=== PATIENT | male | born 1980 | race Caucasian/White ===

== ENCOUNTER 2022-02-13 19:25 | Emergency (ER) | payer BC, SELFPAY ==
[2022-02-13 19:27] VITALS: BP 95/68; PULSE 79; RESP 16; TEMP 36.4; O2SAT 99; BMI 25.7
[2022-02-13 21:06] LABS: Absolute Lymphocyte Count 1.33 X10^3/uL (0.83-4.51); Absolute Neutrophil Count 2.5 X10^3/uL (2.0-7.7); Basophil# 0.02 X10^3/uL; Basophil% 0.5 % (0-1); Eosinophil# 0.11 X10^3/uL; Eosinophils% 2.5 % (0-5); Hematocrit 40.7 % (40-54); Hemoglobin 13.7 g/dL (13.0-16.5); Lymphocyte # 1.33 X10^3/ul (0.83-4.51); Lymphocyte % 30.8 % (19-41); Mean Corp Hgb Conc 33.7 g/dL (32-36); Mean Corpuscular Hgb 29.9 pg (27.0-32.0); Mean Corpuscular Volume 88.9 fL (80-94); Mean Platelet Vol. 9.4 fl (6.2-12.0); Monocyte# 0.37 X10^3/uL; Monocyte% 8.6 % (0-10); NRBC Flagged by Analyzer 0 % (0-5); Neutrophil # 2.47 X10^3/uL (2.7-7.7); Neutrophil % 57.1 % (47-70); Platelet Count 200 K/mm3 (150-450); RBC Distribution Width CV 12.8 % (11.6-14.6); RBC Distribution Width SD 41.7 fl (35.1-43.9); Red Blood Count 4.58 M/mm3 (4.6-6.2); White Blood Count 4.3 K/mm3 (4.4-11.0)
--- NOTE | 2022-02-13 21:11 | CT_ITS ---
EXAM: CT ABDOMEN AND PELVIS WITHOUT INTRAVENOUS CONTRAST CLINICAL INDICATION: hematuria TECHNIQUE: Helically acquired images were obtained of the abdomen and pelvis without intravenous contrast. CTDIvol = ( 8.70 ) mGy, DLP = ( 487.13 ) mGycm This CT exam was performed using one or more of the following dose reduction techniques: automated exposure control, adjustment of the mA and/or kV according to patient size, and/or use of iterative reconstruction technique. This report was created using [employer] report generation technology. COMPARISON: None. FINDINGS: LOWER THORAX: No consolidation. No pleural effusion or pneumothorax. ABDOMEN: LIVER: Several focal small metallic densities involve the posterior segment of the right hepatic lobe. GALLBLADDER AND BILE DUCTS: Gallbladder sludge. No wall thickening or surrounding fluid in place. No calcifications involving the gallbladder. No definite acute cholecystitis. No intra- or extrahepatic biliary ductal dilation. PANCREAS: Unremarkable. No focal cystic mass. SPLEEN: Unremarkable. Normal size without focal cystic or solid mass. ADRENALS: Unremarkable. No nodules. KIDNEYS AND URETERS: No radiopaque urolithiasis. Normal renal size and position. No hydronephrosis. STOMACH AND BOWEL: Unremarkable. No stomach or bowel distention. No focal inflammatory change. PELVIS: APPENDIX: No evidence of acute appendicitis. BLADDER: Unremarkable. REPRODUCTIVE: Unremarkable as visualized. No mass. ABDOMEN and PELVIS: INTRAPERITONEAL SPACE: Unremarkable. No ascites or other fluid collection. No free air. BONES/JOINTS: Unremarkable. No suspicious lytic or blastic abnormality. SOFT TISSUES: Gynecomastia bilaterally. Mild subsegmental atelectasis at the posterior lower lobes. No discrete abdominal or pelvic wall hernia. VASCULATURE: Unremarkable. Abdominal aorta is non-dilated. LYMPH NODES: Unremarkable. No enlarged lymph nodes. CT/Abdomen/Pelvis without Cont IMPRESSION: No radiopaque urolithiasis or any other acute disease. Electronically Signed: Jose A Trevino MD at 21:39 EDT ,
[2022-02-13 21:29] LABS: AST(SGOT) 616 U/L (15-37); Alanine Aminotransfer ALT/SGPT 1019 U/L (16-61); Alkaline Phosphatase 142 U/L (45-117); Anion Gap 7 (5-15); BUN 14 mg/dL (7-18); BUN/Creat Ratio 12.2 RATIO (10-20); Bilirubin, Direct 3.57 mg/dL (0.00-0.30); CPK Total, Creatine Kinase 804 U/L (39-308); Calcium,Total 8.9 mg/dL (8.5-10.1); Chloride 104 mmol/L (98-107); Creatinine, Serum 1.15 mg/dL (0.70-1.30); EST Glomerular Filtration Rate 74 mL/min (>60); Est Glom Filt Rate - Afr Amer 89 mL/min (>60); Globulin 3.3 g/dL (2.2-4.2); Glucose 96 mg/dL (74-106); Lipase 386 U/L (73-393); Potassium 3.7 mmol/L (3.5-5.1); Protein, Total 7.3 g/dL (6.4-8.2); Sodium Level 138 mmol/L (136-145)
--- NOTE | 2022-02-13 21:37 | US_ITS ---
EXAM: US ABDOMEN LIMITED, RIGHT UPPER QUADRANT CLINICAL INDICATION: abnormal LFTs TECHNIQUE: Real-time ultrasound of the right upper quadrant with image documentation. This report was created using [employer] report generation technology. COMPARISON: None. FINDINGS: LIVER: Echogenic focus involving the liver is potentially postsurgical. Hepatomegaly measuring 18.4 cm. No intrahepatic biliary ductal dilation. GALLBLADDER: Gallbladder is distended with stones and sludge. No gallbladder wall thickening. Sonographic Jimenez''s sign is negative. No pericholecystic fluid. COMMON BILE DUCT: Common bile duct is dilated to 9 mm. No choledocholithiasis on limited assessment. Intrahepatic ducts are mildly dilated. Correlate with LFTs and consider MRCP as clinically indicated. PANCREAS: Unremarkable as visualized. No focal abnormality is demonstrated in the pancreas. No pancreatic ductal dilatation. RIGHT KIDNEY: Right kidney is unremarkable. There is no hydronephrosis. No shadowing calculus. No focal lesion or perinephric collection is demonstrated. OTHER VASCULATURE: Main portal vein is patent with normal direction of blood flow. US/Abdomen Limited IMPRESSION: 1. Cholelithiasis and gallbladder sludge without definite acute cholecystitis. 2. Common bile duct is dilated to 9 without definite choledocholithiasis on limited assessment. Intrahepatic ducts are mildly dilated. Correlate with LFTs and consider MRCP as clinically indicated. Electronically Signed: Jose A Trevino MD at 22:59 EDT ,
[2022-02-13] MEDS: Ondansetron 4 MG/2 ML Vial IV (21:46)
[2022-02-13] MEDS: 0.9% Normal Saline 1,000 ML 1000 ML IV (21:47)
[2022-02-13 21:48] LABS: Mucous, Urine 0 SEEN /hpf (<or=2+); Squamous Epithelial Cells - UA 0 SEEN /hpf (0-5)
[2022-02-13 21:52] LABS: Color, Urine Amber (Yellow); Glucose, Dipstick Normal (Normal); Ketone-Dipstick 5 mg/dl (Negative); Leukocyte Esterase-Dipstick 25 /ul (Negative); Nitrite-Dipstick Negative (Negative); Occult Blood-Urine 10 /ul (Negative); Protein-Dipstick 15 mg/dl (Negative); Urine Clarity Clear (Clear); Urine Urobilinogen 8 mg/dl (Normal)
[2022-02-13 21:55] LABS: Urine Bilirubin Dipstick 6 mg/dL (Negative)
[2022-02-13 22:17] LABS: Bacteria RARE /hpf (None Seen); Red Blood Cells-Urine 0-5 SEEN /hpf (0-5); White Blood Cells 0-5 SEEN /hpf (0-5)
--- NOTE | 2022-02-13 22:35 | EDS_ITS ---
HPI History of Present Illness Chief Complaint: Complaint Detail of Chief Complaint: Urinating blood, discolored stool, generalized weakness Informant: patient Narrative Narrative: Patient presents with multiple complaints. He states that he has been noticed what appears to be blood in his urine for the past 4 days. He had some pain with urination today. 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 He thinks he may have had a heatstroke 3 weeks ago. He states he was extremely hot at work and confused. He had trouble speaking for a while. They were try to give him water and he would vomit. He states since then he additionally has not felt well. He does report that he has been nauseated and vomiting up stomach acid for the past 4 days. Patient reports trauma a year ago when he fell from a tree at work. He had a liver laceration that required repair. He has not really followed up with anybody since that time. He denies having a kidney laceration at that time but states he did have some hematuria for a while. PFSH PFS Medical History Hx of back injury Home Medications NK 02/13/22 [History Last Taken Unknown] Allergy/AdvReac Type Severity Reaction Status Date / Time No Known Allergies Allergy Verified 02/13/22 19:30 Surgical History Hx of Achilles tendon repair Social History Smoking Status: Never smoker ROS ROS ED Constitutional Constitutional ED: Denies chills or fever(s) Eyes Eyes: Denies change in vision or discharge from eye(s) ENT ENT ED: Denies discharge from eye(s), rhinorrhea or sore throat Cardiovascular Cardiovascular: Denies chest pain or palpitations Respiratory/Chest Respiratory/Chest: Denies cough or dyspnea Gastrointestinal Gastrointestinal: Reports abdominal pain, nausea and vomiting; Denies diarrhea Genitourinary Genitourinary ED: Reports dysuria and hematuria; Denies difficulty urinating Musculoskeletal Musculoskeletal: Reports back pain; Denies extremity pain Integumentary Denies Abrasions or rash Neurologic Neurologic: Denies headache(s) or weakness Psychiatric Psychiatric: Denies anxiety or depression Endocrine Endocrinology: Denies polydipsia or polyuria Allergic/Immunologic Allergic/Immunologic ED: Denies lip swelling or urticaria EXAM Physical Exam Const Vital Signs: 02/13/22 19:27 02/13/22 23:14 02/13/22 23:22 Temperature 97.5 F L Temperature Source Temporal Pulse Rate 79 52 L Respiratory Rate 16 16 14 Blood Pressure 95/68 109/70 Blood Pressure Mean 77 83 Pulse Ox 99 99 Oxygen Delivery Method Room Air Room Air Positive well nourished and well developed General Appearance ED: well developed HEENT Reports normocephalic and head/scalp atraumatic Eyes PERRL and EOMs intact bilaterally Neck supple Chest Wall inspection of chest normal and palpation of chest normal Resp normal respiratory effort and clear to auscultation bilaterally Cardio regular rate and regular rhythm GI GI Narrative: Abdomen is soft with mild diffuse tenderness. No guarding or rebound. Palpation: soft Back/Spine no CVA tenderness Extremity normal to inspection Neuro oriented x3 and no sensory deficits noted Sensorium / Orientation: alert Motor Exam: strength 5/5 throughout Psych mental status grossly normal Skin no rashes or lesions noted MDM MDM MDM Narrative Medical decision making narrative: Lab work obtained along with urinalysis and CT flank. Patient given IV fluids and Protonix. Due to some continued dry heaves he was given Zofran. Lab Data Attestation: I reviewed the patient's lab results. Labs: Laboratory Results - last 24 hr 02/13/22 02/13/22 02/13/22 20:56 20:56 21:35 WBC 4.3 L RBC 4.58 L Hgb 13.7 Hct 40.7 MCV 88.9 MCH 29.9 MCHC 33.7 RDW Std Deviation 41.7 RDW Coeff of Franci 12.8 Plt Count 200 MPV 9.4 Immature Gran % (Auto) 0.500 Neut % (Auto) 57.1 Lymph % (Auto) 30.8 [place] % (Auto) 8.6 Eos % (Auto) 2.5 Baso % (Auto) 0.5 Absolute Neuts (auto) 2.5 Absolute Lymphs (auto) 1.33 Nucleated RBC % 0 Sodium 138 Potassium 3.7 Chloride 104 Carbon Dioxide 27.0 Anion Gap 7 BUN 14 Creatinine 1.15 Estim Creat Clear Calc 96.30 Est GFR (MDRD) Af Amer 89 Est GFR (MDRD) Non-Af 74 BUN/Creatinine Ratio 12.2 Glucose 96 Calcium 8.9 Total Bilirubin 5.30 H Direct Bilirubin 3.57 H AST 616 H ALT 1019 H Alkaline Phosphatase 142 H Total Creatine Kinase 804 H Total Protein 7.3 Albumin 4.0 Globulin 3.3 Lipase 386 Urine Color [place] Urine Clarity Clear Urine pH 5.0 Ur Specific [place] 1.030 Urine Protein 15 H Urine Glucose (UA) Normal Urine Ketones 5 H Urine Occult Blood 10 H Urine Nitrite Negative Urine Bilirubin 6 H Urine Urobilinogen 8 H Ur Leukocyte Esterase 25 H Urine RBC 0-5 SEEN Urine WBC 0-5 SEEN Ur Squamous Epith Cells 0 SEEN Urine Bacteria RARE Urine Mucus 0 SEEN Radiography Diagnostic Testing: Clinical Impression(s) from Imaging Studies Abdomen/Pelvis CT 02/13/22 21:11 IMPRESSION: No radiopaque urolithiasis or any other acute disease. Electronically Signed: Jose A Trevino MD at 21:39 EDT , Abdomen Ultrasound 02/13/22 21:37 IMPRESSION: 1. Cholelithiasis and gallbladder sludge without definite acute cholecystitis. 2. Common bile duct is dilated to 9 without definite choledocholithiasis on limited assessment. Intrahepatic ducts are mildly dilated. Correlate with LFTs and consider MRCP as clinically indicated. Electronically Signed: Jose A Trevino MD at 22:59 EDT , Treatment and Re-Evaluation Narrative: Patient's white count is normal. LFTs are significantly abnormal with an ALT of 1019, AST of 616, direct bilirubin of 3.57, total bilirubin of 5.30. Total CK level is 804. Patient's lipase is normal. Urinalysis reveals bilirubin in the urine but no blood. CT scan of the abdomen and pelvis revealed no acute disease. Right upper quadrant ultrasound is obtained. There is evidence of cholelithiasis and gallbladder sludge without definitive acute cholecystitis. The common bile duct is dilated to 9 without definitive choledocholithiasis. Intrahepatic ducts are mildly dilated and MRCP is recommended. Test results were discussed with patient as well as significant other at bedside. He is unwilling to stay in the hospital for further testing and states he is going to walk out of the emergency room. I warned him that worsening liver disease can be life-threatening. He again voices he will not stay in the hospital. He will be given phone number for GI for follow-up but he was warned that it may be several months until he can get in to be seen. He was encouraged to come back to the emergency room if he changes his mind about treatment, but was warned that if we do not have GI on-call that day he may be transferred for further care. I advised him that knee he needs to take responsibility for his health care and seek treatment for this for this before it gets worse. Acute hepatitis panel will be drawn prior to patient leaving the emergency room. Discharge Plan Triage Chief Complaint: Complaint Other Complaint: General Illness ED Provider: Clau Garcia Dx/Rx/DC Orders Clinical Impression: Transaminitis Instructions: Tests for Liver Disease Prescriptions: No Action NK Primary Care Provider: Care Physician,No Primary Referrals: Aung Pina, DO [STAFF PHYSICIAN] - As soon as possible Care Physician,No Primary [Primary Care Provider] - Activity Restrictions/Additional Instructions: As discussed, I recommend staying in the hospital for further testing to ensure further treatment for your liver disease. At this time you are refusing hospital admission. Please follow-up with GI as soon as possible. You may return to the hospital to seek treatment anytime, but understand that if we do not have GI systems security consultant that particular day you may be transferred to another facility. You can from liver disease and this needs treated as promptly as possible. Disposition Disposition: Home, Self Care
[2022-02-13 23:14] VITALS: RESP 16
[2022-02-13 23:22] VITALS: BP 109/70; PULSE 52; RESP 14; O2SAT 99
[2022-02-16 12:08] LABS: HEPATITIS B SURFACE AG Negative (Negative); Hep C Antibodies 0.2 s/co ratio (0.0-0.9); Hepatitis A IgM Antibody Negative (Negative); Hepatitis B Core AB IgM Negative (Negative)
== END 2022-02-14 00:03 | disposition home or self-care (01) ==
PROVIDERS: Emergency Provider Emergency Medicine; Visit Provider Emergency Medicine
DX: R74.01 Elevation of levels of liver transaminase levels (principal); K83.8 Other specified diseases of biliary tract; R31.9 Hematuria, unspecified; R53.1 Weakness
CPT/HCPCS: 74176; 76705; 80048; 80074; 80076; 81001; 82550; 83690; 85025; 96365; 96375; 99283; J7030; A4216; J2405

== ENCOUNTER 2022-02-14 09:11 | Emergency (ER) | payer BC, SELFPAY ==
[2022-02-14 09:12] VITALS: BP 117/80; PULSE 71; RESP 16; TEMP 36.8; O2SAT 100; BMI 25.7
--- NOTE | 2022-02-14 09:16 | EDS_ITS ---
HPI <DENNYS Breaux - Last Filed: 02/14/22 14:48> History of Present Illness Chief Complaint: Abd Pain Narrative Narrative: Patient has noticed blood in his urine for 5 days and his stools looked light hector and white in color. He has also had burning upper abdominal pain and intermittent nausea and vomiting over the same period. He was seen here yesterday with lab work and a CT. He had significantly elevated LFTs. CT scan was normal. RUQ ultrasound showed gallstones and sludge and dilated common bile duct. They had recommended MRCP but he left AMA because he had things to take care of with his and did not want to take a taxi. He says he has not vomited since he left but did drink a lot of apple juice this morning and is having upper abdominal discomfort. He came back into get things taken care of. Previous surgical history includes repair of a liver laceration a year ago after a fall. No other surgeries, takes no medications. States he drinks 1 to 2 glasses of wine per week. PFSH <DENNYS Breaux - Last Filed: 02/14/22 14:48> [facility] Medical History (Updated 02/14/22 @ 12:43 by DENNYS Breaux) Hx of back injury Liver laceration Home Medications NK 02/13/22 [History Last Taken Unknown] Allergy/AdvReac Type Severity Reaction Status Date / Time No Known Allergies Allergy Verified 02/14/22 09:13 Surgical History Hx of Achilles tendon repair Social History Smoking Status: Never smoker ROS <DENNYS Breaux - Last Filed: 02/14/22 14:48> ROS ED ROS Narrative Constitutional: Negative for fever, chills, malaise. Eyes: Negative for visual change. ENT: Negative for sore throat, ear pain, rhinorrhea. CVS: Negative for palpitations, chest pain, syncope. Respiratory: Negative for shortness of breath, cough, orthopnea. GI: Positive for abdominal pain, nausea, vomiting. Negative for diarrhea, constipation, melena, hematochezia. : Positive for hematuria. Negative for dysuria or frequency. Neuro: Negative for headache, motor/sensory dysfunction. Skin: Negative for rash, abscess, or wound. Musc: Negative for joint pain, swelling, trauma. Heme: Negative for easy bruising, bleeding, lymphadenopathy. EXAM <DENNYS Breaux - Last Filed: 02/14/22 14:48> Physical Exam Narrative Exam Narrative: CONST: Patient sitting in no acute distress. EYES: Normal inspection. ENT: Normal inspection, moist mucous membranes. NECK: Normal inspection. RESP: No respiratory distress, CTAB. CVS: Regular rate and rhythm, no murmur, no gallop. ABD: Soft with mild RUQ and epigastric tenderness, negative Jimenez sign, no guarding or rebound, nondistended, no hepatosplenomegaly. SKIN: Color normal, no rash, warm, dry, intact. EXTREMITIES: Normal appearance, no pedal edema. NEURO: Oriented x4. PSYCH: Normal affect. Const Vital Signs: 02/14/22 09:12 02/14/22 09:55 02/14/22 11:27 Temperature 98.2 F 98.2 F Temperature Source Temporal Temporal Pulse Rate 71 71 58 L Respiratory Rate 16 16 18 Blood Pressure 117/80 117/80 110/77 Blood Pressure Mean 92 92 88 Pulse Ox 100 100 98 Oxygen Delivery Method Room Air Room Air Room Air <Dr. Mikal Calero, - Last Filed: 02/14/22 15:25> Physical Exam Const Vital Signs: 02/14/22 09:12 02/14/22 09:55 02/14/22 11:27 Temperature 98.2 F 98.2 F Temperature Source Temporal Temporal Pulse Rate 71 71 58 L Respiratory Rate 16 16 18 Blood Pressure 117/80 117/80 110/77 Blood Pressure Mean 92 92 88 Pulse Ox 100 100 98 Oxygen Delivery Method Room Air Room Air Room Air MDM <DENNYS Breaux - Last Filed: 02/14/22 14:48> [facility] Narrative Medical decision making narrative: Patient has had 5 days of upper abdominal pain, nausea and vomiting, and dark- colored urine. He was seen here yesterday and had elevated LFTs and bilirubin and right upper quadrant ultrasound findings concerning forcholedocholithiasis. He left AMA and returned today for the same symptoms. He appears well and nontoxic. Vital signs within normal limits. He has mild tenderness to the right upper quadrant but negative Jimenez sign and no guarding or rebound. Repeat labs show normal white count and normal electrolytes and renal function. Total bilirubin is 5.6, AST 457, ALT 882. This is slightly improved from yesterday, however his lipase went from 386 to 14,044. UA has bilirubin but no blood or infection. There is not GI service available this weekend. I spoke with general surgery who does not perform ERCP and recommended transfer. Patient was accepted by a doctor at [facility] but then he refused to go by squad. [facility] states if he drives or himself he cannot keep the transfer. Patient signed out AMA. We thoroughly discussed the risks. I told him he has choledocholithiasis which could worsen and become infected, cause sepsis, endorgan damage or . He expressed understanding. He was given a copy of his results and states he will leave and drive to [facility] ER. Diagnoses: Choledocholithiasis, transaminitis, abdominal pain Lab Data Attestation: I reviewed the patient's lab results. Labs: Laboratory Results - last 24 hr 02/14/22 02/14/22 02/14/22 09:40 09:50 09:50 WBC 4.5 RBC 4.39 L Hgb 13.3 Hct 38.9 L MCV 88.6 MCH 30.3 MCHC 34.2 RDW Std Deviation 42.3 RDW Coeff of [place]arn[place] 13.0 Plt Count 160 MPV 9.3 Immature Gran % (Auto) 0.200 Neut % (Auto) 75.8 H Lymph % (Auto) 15.6 L [place] % (Auto) 6.9 Eos % (Auto) 1.3 Baso % (Auto) 0.2 Absolute Neuts (auto) 3.4 Absolute Lymphs (auto) 0.70 L Nucleated RBC % 0 Sodium 140 Potassium 3.6 Chloride 109 H Carbon Dioxide 26.0 Anion Gap 5 BUN 10 Creatinine 1.22 Estim Creat Clear Calc 90.77 Est GFR (MDRD) Af Amer 83 Est GFR (MDRD) Non-Af 69 BUN/Creatinine Ratio 8.2 L Glucose 110 H Calcium 8.8 Total Bilirubin 5.60 H Direct Bilirubin 3.98 H AST 457 H ALT 882 H Alkaline Phosphatase 138 H Total Protein 6.7 Albumin 3.6 Globulin 3.1 Lipase 19028 H Urine Color Lindsey Urine Clarity Sl. Cloudy Urine pH 5.0 Ur Specific [place] 1.020 Urine Protein 15 H Urine Glucose (UA) Normal Urine Ketones 5 H Urine Occult Blood 10 H Urine Nitrite Negative Urine Bilirubin 6 H Urine Urobilinogen 4 H Ur Leukocyte Esterase 25 H Urine RBC 0 SEEN Urine WBC 0 SEEN Ur Squamous Epith Cells 0 SEEN Urine Bacteria 0 SEEN Urine Mucus 0 SEEN <Dr. Mikal Calero, DO - Last Filed: 02/14/22 15:25> [facility] Narrative Medical decision making narrative: This patient was seen with a PA/INSPECTOR GOLF BALL Individually assessed they patient including history and physical. I have reviewed everything on the chart that is available and agree with the documentation provided by the PA/INSPECTOR GOLF BALL including discussion about the assessment, treatment plan, discussion, and return precautions. Patient has had 5 days of upper abdominal pain, nausea and vomiting, and dark- colored urine. He was seen here yesterday and had elevated LFTs and bilirubin and right upper quadrant ultrasound findings concerning forcholedocholithiasis. He left AMA and returned today for the same symptoms. He appears well and nontoxic. Vital signs within normal limits. He has mild tenderness to the right upper quadrant but negative Jimenez sign and no guarding or rebound. Repeat labs show normal white count and normal electrolytes and renal function. Total bilirubin is 5.6, AST 457, ALT 882. This is slightly improved from yesterday, however his lipase went from 386 to 14,044. UA has bilirubin but no blood or infection. There is not GI service available this weekend. I spoke with general surgery who does not perform ERCP and recommended transfer. Patient was accepted by a doctor at [facility] but then he refused to go by squad. [facility] states if he drives or himself he cannot keep the transfer. Patient signed out AMA. We thoroughly discussed the risks. I told him he has choledocholithiasis which could worsen and become infected, cause sepsis, endorgan damage or . He expressed understanding. He was given a copy of his results and states he will leave and drive to [facility] ER. Diagnoses: Choledocholithiasis, transaminitis, abdominal pain Lab Data Labs: Laboratory Results - last 24 hr 02/14/22 02/14/22 02/14/22 09:40 09:50 09:50 WBC 4.5 RBC 4.39 L Hgb 13.3 Hct 38.9 L MCV 88.6 MCH 30.3 MCHC 34.2 RDW Std Deviation 42.3 RDW Coeff of Franci 13.0 Plt Count 160 MPV 9.3 Immature Gran % (Auto) 0.200 Neut % (Auto) 75.8 H Lymph % (Auto) 15.6 L [place] % (Auto) 6.9 Eos % (Auto) 1.3 Baso % (Auto) 0.2 Absolute Neuts (auto) 3.4 Absolute Lymphs (auto) 0.70 L Nucleated RBC % 0 Sodium 140 Potassium 3.6 Chloride 109 H Carbon Dioxide 26.0 Anion Gap 5 BUN 10 Creatinine 1.22 Estim Creat Clear Calc 90.77 Est GFR (MDRD) Af Amer 83 Est GFR (MDRD) Non-Af 69 BUN/Creatinine Ratio 8.2 L Glucose 110 H Calcium 8.8 Total Bilirubin 5.60 H Direct Bilirubin 3.98 H AST 457 H ALT 882 H Alkaline Phosphatase 138 H Total Protein 6.7 Albumin 3.6 Globulin 3.1 Lipase 42988 H Urine Color Lindsey Urine Clarity Sl. Cloudy Urine pH 5.0 Ur Specific [place] 1.020 Urine Protein 15 H Urine Glucose (UA) Normal Urine Ketones 5 H Urine Occult Blood 10 H Urine Nitrite Negative Urine Bilirubin 6 H Urine Urobilinogen 4 H Ur Leukocyte Esterase 25 H Urine RBC 0 SEEN Urine WBC 0 SEEN Ur Squamous Epith Cells 0 SEEN Urine Bacteria 0 SEEN Urine Mucus 0 SEEN Discharge Plan Triage Chief Complaint: Abd Pain ED Midlevel Provider: Nesha Robins ED Provider: Mikal Calero Dx/Rx/DC Orders Clinical Impression: Choledocholithiasis with obstruction Instructions: What Are Gallstones Prescriptions: No Action NK Primary Care Provider: Care Physician,No Primary Referrals: Care Physician,No Primary [Primary Care Provider] - Activity Restrictions/Additional Instructions: You have a medical condition called choledocholithiasis. This means a stone is stuck in your common bile duct and is causing blockage. It needs a surgical procedure to be fixed. You are refusing to be transferred to [facility] and are leaving AGAINST MEDICAL ADVICE. Risks include developing an infection, sepsis, endorgan damage or . I recommend that you go to [facility] ER if you are going to leave. Disposition Disposition: Against Medical Advice Discharge Date/Time: 02/14/22 13:08
[2022-02-14 09:43] LABS: Bacteria 0 SEEN /hpf (None Seen); Mucous, Urine 0 SEEN /hpf (<or=2+); Red Blood Cells-Urine 0 SEEN /hpf (0-5); Squamous Epithelial Cells - UA 0 SEEN /hpf (0-5); White Blood Cells 0 SEEN /hpf (0-5)
[2022-02-14 09:55] VITALS: BP 117/80; PULSE 71; RESP 16; TEMP 36.8; O2SAT 100
[2022-02-14] MEDS: 0.9% Normal Saline 1,000 ML 999 ML IV (09:55)
[2022-02-14 10:08] LABS: Absolute Neutrophil Count 3.4 X10^3/uL (2.0-7.7); Basophil# 0.01 X10^3/uL; Basophil% 0.2 % (0-1); Eosinophil# 0.06 X10^3/uL; Eosinophils% 1.3 % (0-5); Hematocrit 38.9 % (40-54); Hemoglobin 13.3 g/dL (13.0-16.5); Lymphocyte % 15.6 % (19-41); Mean Corp Hgb Conc 34.2 g/dL (32-36); Mean Corpuscular Hgb 30.3 pg (27.0-32.0); Mean Corpuscular Volume 88.6 fL (80-94); Mean Platelet Vol. 9.3 fl (6.2-12.0); Monocyte# 0.31 X10^3/uL; Monocyte% 6.9 % (0-10); NRBC Flagged by Analyzer 0 % (0-5); Neutrophil # 3.41 X10^3/uL (2.7-7.7); Neutrophil % 75.8 % (47-70); Platelet Count 160 K/mm3 (150-450); RBC Distribution Width SD 42.3 fl (35.1-43.9); Red Blood Count 4.39 M/mm3 (4.6-6.2); White Blood Count 4.5 K/mm3 (4.4-11.0)
[2022-02-14 10:09] LABS: Color, Urine Amber (Yellow); Glucose, Dipstick Normal (Normal); Ketone-Dipstick 5 mg/dl (Negative); Leukocyte Esterase-Dipstick 25 /ul (Negative); Nitrite-Dipstick Negative (Negative); Occult Blood-Urine 10 /ul (Negative); Protein-Dipstick 15 mg/dl (Negative); Urine Bilirubin Dipstick 6 mg/dL (Negative); Urine Clarity Sl. Cloudy (Clear); Urine Urobilinogen 4 mg/dl (Normal)
[2022-02-14 10:39] LABS: AST(SGOT) 457 U/L (15-37); Alanine Aminotransfer ALT/SGPT 882 U/L (16-61); Albumin, Serum 3.6 g/dL (3.2-5.0); Alkaline Phosphatase 138 U/L (45-117); Anion Gap 5 (5-15); BUN 10 mg/dL (7-18); BUN/Creat Ratio 8.2 RATIO (10-20); Bilirubin, Direct 3.98 mg/dL (0.00-0.30); Calcium,Total 8.8 mg/dL (8.5-10.1); Chloride 109 mmol/L (98-107); Creatinine, Serum 1.22 mg/dL (0.70-1.30); EST Glomerular Filtration Rate 69 mL/min (>60); Est Glom Filt Rate - Afr Amer 83 mL/min (>60); Estimated Creatinine Clearance 90.77 ml/min; Globulin 3.1 g/dL (2.2-4.2); Glucose 110 mg/dL (74-106); Lipase 14044 U/L (73-393); Potassium 3.6 mmol/L (3.5-5.1); Protein, Total 6.7 g/dL (6.4-8.2); Sodium Level 140 mmol/L (136-145)
[2022-02-14 11:27] VITALS: BP 110/77; PULSE 58; RESP 18; O2SAT 98
--- NOTE | 2022-02-14 13:03 | ED.RN ---
PT PULLED OUT OWN IV. PT REPORTS HE WANTS TO GO HOME, DOES NOT WANT TO WAIT. PT INFORMED OF WAITING FOR TRANSFER INFORMATION TO [facility]. SIGNS AMA PAPERWORK BUT LEAVE PRIOR TO RECEIVING DISCHARGE INSTRUCTIONS.
--- NOTE | 2022-02-14 13:06 | ED.RN ---
IV VISUALIZED BY THIS RN. HEP LOCK AND ANGIOCATH LEFT IN BED. INTACT.
== END 2022-02-14 13:08 | disposition left against medical advice (07) ==
PROVIDERS: Physician Assistant; Emergency Provider Student in an Organized Health Care Education/Training Program; Visit Provider Student in an Organized Health Care Education/Training Program
DX: K80.71 Calculus of gallbladder and bile duct without cholecystitis with obstruction (principal); Z53.29 Procedure and treatment not carried out because of patient's decision for other reasons; Z20.822 Contact with and (suspected) exposure to COVID-19; R31.9 Hematuria, unspecified; R11.2 Nausea with vomiting, unspecified; R74.01 Elevation of levels of liver transaminase levels
CPT/HCPCS: 80048; 80076; 81001; 83690; 85025; 87811; 96360; 96361; 99283; J7030; A4216